=== PATIENT | male | born 1990 | race Caucasian/White ===

== ENCOUNTER 2016-12-25 14:31 | Emergency (ER) | payer BC, OTHER ==
--- NOTE | 2016-12-25 19:04 | RAD ---
INDICATION: Chest pain and shortness of breath COMPARISON: None TECHNIQUE: PA and lateral dual-energy views were obtained. FINDINGS: Bones/Soft Tissues: There are no acute bony findings. Cardiomediastinal: The cardiomediastinal silhouette is normal. Lungs: There are no infiltrates. Pleura: There are no pleural effusions. Other: None IMPRESSION: NEGATIVE EXAMINATION.
[2016-12-25 19:11] LABS: Hematocrit 47 % (42-52); Hemoglobin 16.2 g/dl (14.0-18.0); Mean Corpuscular HGB Conc 34 g/dl (31-36); Mean Corpuscular Hemoglobin 31 pg (27-31); Mean Corpuscular Volume 91 fL (80-94); Mean Platelet Volume 8 um3 (7.4-10.4); Red Blood Count 5.19 10^6/ul (4.0-5.4); Red Cell Distribution Width 13 % (10.5-15); White Blood Count 6.4 10^3/ul (3.5-10.8)
[2016-12-25 19:29] LABS: Albumin 4.9 g/dL (3.2-5.2); BUN/Creatinine Ratio 24.7 (8-20); Calcium 9.6 mg/dL (8.6-10.3); EGFR Non-African American 107.3 (>60); Globulin 2.8 g/dL (2-4); Potassium 3.9 mmol/L (3.5-5.0); Total Bilirubin 1.4 mg/dL (0.2-1.0); Total Protein 7.7 g/dL (6.4-8.9)
[2016-12-25 19:56] LABS: TSH (Thyroid Stimulating Horm) 3.76 mcIU/mL (0.34-5.60)
[2016-12-25] MEDS ORDERED: hydrOXYzine HCL TAB* 25 MG PO ONE (20:09)
--- NOTE | 2016-12-25 20:10 | ED ---
HPI Chest Pain - HPI Summary HPI Summary: 26M presents with chest pain for 2 weeks. He states that he thinks it is anxiety related. It does not change with exercise which he regularly does. He denies any abdominal pain, acid reflux, nausea or vomiting. He states the chest pain is substernal and he occasionally has a couple fluttering in his heart as his heart skips a beat. He denies any SOB. He does not smoke and is not diabetic. He denies any MA below age of 50. He has follow up with primary within a week. The chest pressure is contacts. nothing makes it worst. - History of Current Complaint Chief Complaint: EDChestPainROMI Time Seen by Provider: 12/25/16 18:35 Pain Intensity: 2 - Allergy/Home Medications Allergies/Adverse Reactions: Allergies Allergy/AdvReac Type Severity Reaction Status Date / Time Amoxicillin Allergy Swelling Verified 12/25/16 14:34 Of Face,Lips,& Throat Penicillins Allergy Swelling Verified 12/25/16 14:34 Of Face,Lips,& Throat PMH/Surg Hx/FS Hx/Imm Hx Endocrine/Hematology History: Denies: Hx Diabetes Cardiovascular History: Denies: Hx Hypertension, Hx Pacemaker/ICD History: Denies: Hx Renal Disease Sensory History: Denies: Hx Hearing Aid Psychiatric History: Denies: Hx Panic Disorder - Surgical History Surgery Procedure, Year, and Place: T& - as a child. Lt KNEE - ACL REPAIR 07/10 Infectious Disease History: No Infectious Disease History: Denies: Traveled Outside the [place] in Last 30 Days - Family History Known Family History: Positive: Cardiac Disease - Social History Alcohol Use: Rare Substance Use Type: Reports: None Smoking Status (MU): Never Smoked Tobacco Review of Systems Negative: Fever Positive: Chest Pain Negative: Shortness Of Breath, Cough All Other Systems Reviewed And Are Negative: Yes Physical Exam Triage Information Reviewed: Yes Vital Signs On Initial Exam: Initial Vitals Temp Pulse Resp BP Pulse Ox 99.2 F 69 16 147/97 99 12/25/16 14:35 12/25/16 14:35 12/25/16 14:35 12/25/16 14:35 12/25/16 14:35 Vital Signs Reviewed: Yes Appearance: Positive: Well-Appearing Skin: Positive: Warm, Dry Head/Face: Positive: Normal Head/Face Inspection Eyes: Positive: Normal, EOMI, DOMITILA, Conjunctiva Clear ENT: Positive: Normal ENT inspection, Pharynx normal, TMs normal Respiratory/Lung Sounds: Positive: Clear to Auscultation, Breath Sounds Present , Other - nontender chest wall Cardiovascular: Positive: Normal, RRR Abdomen Description: Positive: Nontender, Soft Bowel Sounds: Positive: Present Diagnostics - Vital Signs Vital Signs Temp Pulse Resp BP Pulse Ox 12/25/16 18:49 97.9 F 57 18 134/69 96 12/25/16 16:36 97.9 F 54 16 135/83 99 12/25/16 14:35 99.2 F 69 16 147/97 99 - Laboratory Lab Results: Lab Results 12/25/16 12/25/16 12/25/16 Range/Units 19:00 19:00 19:00 WBC 6.4 (3.5-10.8) 10^3/ul RBC 5.19 (4.0-5.4) 10^6/ul Hgb 16.2 (14.0-18.0) g/dl Hct 47 (42-52) % MCV 91 (80-94) fL MCH 31 (27-31) pg MCHC 34 (31-36) g/dl RDW 13 (10.5-15) % Plt Count 167 (150-450) 10^3/ul MPV 8 (7.4-10.4) um3 Neut % (Auto) 60.6 (38-83) % Lymph % (Auto) 27.9 (25-47) % Cooper % (Auto) 8.0 (1-9) % Eos % (Auto) 2.5 (0-6) % Baso % (Auto) 1.0 (0-2) % Absolute Neuts (auto) 3.9 (1.5-7.7) 10^3/ul Absolute Lymphs (auto) 1.8 (1.0-4.8) 10^3/ul Absolute Monos (auto) 0.5 (0-0.8) 10^3/ul Absolute Eos (auto) 0.2 (0-0.6) 10^3/ul Absolute Basos (auto) 0.1 (0-0.2) 10^3/ul Absolute Nucleated RBC 0 10^3/ul Nucleated RBC % 0.1 D-Dimer, Quantitative < 200 (Less Than 230) ng/mL Sodium 138 (133-145) mmol/L Potassium 3.9 (3.5-5.0) mmol/L Chloride 102 (101-111) mmol/L Carbon Dioxide 28 (22-32) mmol/L Anion Gap 8 (2-11) mmol/L BUN 21 (6-24) mg/dL Creatinine 0.85 (0.67-1.17) mg/dL Est GFR ( Amer) 138.0 (>60) Est GFR (Non-Af Amer) 107.3 (>60) BUN/Creatinine Ratio 24.7 H (8-20) Glucose 86 (70-100) mg/dL Calcium 9.6 (8.6-10.3) mg/dL Total Bilirubin 1.40 H (0.2-1.0) mg/dL AST 22 (13-39) U/L ALT 16 (7-52) U/L Alkaline Phosphatase 63 (34-104) U/L Troponin I 0.00 (<0.04) ng/mL Total Protein 7.7 (6.4-8.9) g/dL Albumin 4.9 (3.2-5.2) g/dL Globulin 2.8 (2-4) g/dL Albumin/Globulin Ratio 1.8 (1-3) TSH 3.76 (0.34-5.60) mcIU/mL Result Diagrams: 12/25/16 19:00 12/25/16 19:00 Lab Statement: Any lab studies that have been ordered have been reviewed, and results considered in the medical decision making process. - EKG No standard instances Cardiac Rate: NL EKG Rhythm: Sinus Rhythm ST Segment: Normal Chest Pain Course/Dx - Course Course Of Treatment: 26M presents with chest pain for 2 weeks. He states that he thinks it is anxiety related. It does not change with exercise which he regularly does. He denies any abdominal pain, acid reflux, nausea or vomiting. He states the chest pain is substernal and he occasionally has a couple fluttering in his heart as his heart skips a beat. He denies any SOB. He does not smoke and is not diabetic. He denies any MA below age of 50. He has follow up with primary within a week. The chest pressure is contacts. nothing makes it worst. lung CTA. RRR. ekg normal. labs normal. chest xray normal. will try anxiety med and have follow up with primary. patient understands and agrees with plan. - Chest Pain Differential Diagnosis/HQI/PQRI: Acute MA, Chest Wall, Pulmonary Embolism, Other : - axiety - Diagnoses Provider Diagnoses: Chest pain Discharge - Discharge Plan Condition: Good Disposition: HOME Prescriptions: hydrOXYzine PAMOATE CAP* [Vistaril CAP*] 25 mg PO DAILY PRN #20 cap MDD 4 PRN Reason: Anxiety Patient Education Materials: Noncardiac Chest Pain (ED) Referrals: [facility] [place] [facility]FERR[facility] [Outside] Additional Instructions: Take hydroxyzine up to four tablets daily Keep a journal to record symptoms Follow up with primary Return to ED if develop any new or worsening symptoms
[2016-12-25 20:26] VITALS: BP 141/83
== END 2016-12-25 20:21 | disposition home or self-care (01) ==
LOC: ED 14:31
DX: R07.9 Chest pain, unspecified (principal)
CPT/HCPCS: 36415; 71020; 80053; 84443; 84484; 85025; 85379; 93005; 99282; A9270-GY

== ENCOUNTER 2017-01-01 01:09 | Emergency (ER) | payer BC ==
[2017-01-01 02:18] LABS: Hematocrit 43 % (42-52); Mean Corpuscular HGB Conc 35 g/dl (31-36); Mean Corpuscular Hemoglobin 31 pg (27-31); Mean Corpuscular Volume 89 fL (80-94); Mean Platelet Volume 9 um3 (7.4-10.4); Red Blood Count 4.87 10^6/ul (4.0-5.4); Red Cell Distribution Width 13 % (10.5-15); White Blood Count 6.9 10^3/ul (3.5-10.8)
[2017-01-01 02:30] LABS: Albumin 4.4 g/dL (3.2-5.2); Calcium 9.4 mg/dL (8.6-10.3); EGFR African American 159.5 (>60); Globulin 2.3 g/dL (2-4); Potassium 3.4 mmol/L (3.5-5.0); Total Bilirubin 2.2 mg/dL (0.2-1.0); Total Protein 6.7 g/dL (6.4-8.9)
--- NOTE | 2017-01-01 02:45 | ED ---
Bridger Alexander SooYoung, scribed for Mckinley Vázquez MD on 01/01/17 at 0156 . HPI Chest Pain - HPI Summary HPI Summary: A 26 y/o M presents to ED with c/o midsternal CP onset approx 2305. Associated sx: dizziness, lightheaded, mild UE numbness, SOB, dyspnea. Pt was at rest when sx came on. Pt states he had similar sx last week and was seen in the ED. He's scheduled to see his PCP, [facility], tomorrow. - History of Current Complaint Chief Complaint: EDChestWallPain Time Seen by Provider: 01/01/17 01:52 Hx Obtained From: Patient Onset/Duration: Started Hours Ago, Still Present Timing: Constant Initial Severity: Moderate Current Severity: Mild Pain Intensity: 0 Pain Scale Used: 0-10 Numeric Chest Pain Location: Diffuse Associated Signs and Symptoms: Positive: Numbness, Dizziness, Shortness of Breath - and dyspnea, Lightheadedness - Allergy/Home Medications Allergies/Adverse Reactions: Allergies Allergy/AdvReac Type Severity Reaction Status Date / Time Amoxicillin Allergy Swelling Verified 12/25/16 14:34 Of Face,Lips,& Throat Penicillins Allergy Swelling Verified 12/25/16 14:34 Of Face,Lips,& Throat PMH/Surg Hx/FS Hx/Imm Hx Previously Healthy: Yes Endocrine/Hematology History: Denies: Hx Diabetes Cardiovascular History: Denies: Hx Hypertension, Hx Pacemaker/ICD History: Denies: Hx Renal Disease Sensory History: Denies: Hx Hearing Aid Psychiatric History: Denies: Hx Panic Disorder - Surgical History Surgery Procedure, Year, and Place: T& - as a child. Lt KNEE - ACL REPAIR 07/10 Infectious Disease History: No Infectious Disease History: Denies: Traveled Outside the [place] in Last 30 Days - Family History Known Family History: Positive: Cardiac Disease - Social History Occupation: Unemployed - OTHER Lives: Alone Alcohol Use: Rare Hx Substance Use: No Substance Use Type: Reports: None Hx Tobacco Use: No Smoking Status (MU): Never Smoked Tobacco Review of Systems Negative: Fever Positive: Chest Pain Positive: Shortness Of Breath - and dyspnea Neurological: Other - pos: lightheadedness, dizziness Positive: Numbness - UE All Other Systems Reviewed And Are Negative: Yes Physical Exam Triage Information Reviewed: Yes Vital Signs On Initial Exam: Initial Vitals Temp Pulse Resp BP Pulse Ox 97.7 F 51 16 123/71 97 01/01/17 01:28 01/01/17 01:28 01/01/17 01:28 01/01/17 01:28 01/01/17 01:28 Vital Signs Reviewed: Yes Appearance: Positive: Well-Appearing, No Pain Distress Skin: Positive: Warm Head/Face: Positive: Normal Head/Face Inspection Eyes: Positive: DOMITILA ENT: Positive: Hearing grossly normal Neck: Positive: Supple Respiratory/Lung Sounds: Positive: Breath Sounds Present Cardiovascular: Positive: RRR Abdomen Description: Positive: Nontender, Soft Bowel Sounds: Positive: Present Musculoskeletal: Positive: Strength/ROM Intact Neurological: Positive: Alert, Oriented to Person Place, Time Psychiatric: Positive: Affect/Mood Appropriate Diagnostics - Vital Signs Vital Signs Temp Pulse Resp BP Pulse Ox 01/01/17 01:32 97.7 F 51 16 123/71 97 01/01/17 01:28 97.7 F 51 16 123/71 97 - Laboratory Result Diagrams: 01/01/17 02:05 01/01/17 02:05 Lab Statement: Any lab studies that have been ordered have been reviewed, and results considered in the medical decision making process. - Radiology CXR Xray Interpretation: No Acute Changes Radiology Interpretation Completed By: ED Physician - EKG 0301 Cardiac Rate: Bradycardia - 49 bpm EKG Rhythm: Sinus Bradycardia Re-Evaluation - Re-Evaluation First Eval Change: Improved - results d/w pt Chest Pain Course/Dx - Course Course Of Treatment: A 26 y/o M presents to ED with c/o midsternal CP onset approx 2305. Associated sx: dizziness, lightheaded, mild UE numbness, SOB, dyspnea. Pt was at rest when sx came on. Pt states he had similar sx last week and was seen in the ED. He's scheduled to see his PCP, [facility] tomorrow. Blood work results are without significant abnormalities. CXR is nml. EKG is sinus nasim at 49 bpm. Will D/C home to follow up with PCP as scheduled. - Diagnoses Provider Diagnoses: Chest pain Discharge - Discharge Plan Condition: Stable Disposition: HOME Patient Education Materials: Chest Pain (ED) Referrals: No Primary Care Phys,NOPCP [Primary Care Provider] - [facility] [place] [facility] [Outside] Additional Instructions: Follow up with your Primary Care Provider as scheduled tomorrow. Please return to the ED if you experience new or worsening symptoms. The documentation as recorded by the Bridger guzman SooYoung accurately reflects the service I personally performed and the decisions made by me, Mckinley Vázquez MD.
[2017-01-01 07:05] VITALS: BP 121/77
--- NOTE | 2017-01-01 07:54 | RAD ---
Indication: Chest pain, shortness of breath. 2 views the chest including dual energy PA views demonstrate no mediastinal shift. Heart is of normal size and configuration. Lung cedillo are clear. No changes noted from December 25, 2016. IMPRESSION: No active cardiopulmonary disease is noted.
== END 2017-01-01 03:05 | disposition home or self-care (01) ==
LOC: ED 01:09
DX: R07.9 Chest pain, unspecified (principal); R42 Dizziness and giddiness; R06.02 Shortness of breath; R06.00 Dyspnea, unspecified
CPT/HCPCS: 36415; 71020; 80053; 84484; 85025; 85379; 93005; 99283